=== PATIENT | male | born 1955 | race Two or more races ===

== ENCOUNTER → 2021-10-16 | Day surgery (SDC) | payer BC, MEDICARE ==
[~2021-10-16] VITALS: Ht 182.9 cm; Wt 93.0 kg
[~2021-10-16] MED LIST: AML5T PO; CIPROFLOXACIN 400MG/200ML 200 ML IV ONE; GLIP10TA9 PO; HYDR-4072 PO; INSU100I33 SC; IOHEXOL 300 MG/ML 100ML BOTTLE IJ ONE; LEVO25TA49 PO; METF-370 PO; MIDAZOLAM HCL 2MG/2ML 2ml VIAL (1mg/ml) ONE; ONDANSETRON HCL 4 MG/2 ML VIAL IV PRN; ONDANSETRON HCL 4 MG/2 ML VIAL ONE; PIOG45TA62 PO; PROPOFOL 10 MG/ML 20 ML IV ONE; fentaNYL CITRATE 5 ML ONE; hydrALAZINE HCL 20 MG/ML VL IV ONE; hydrALAZINE HCL 20 MG/ML VL ONE
[2021-10-16] MEDS: HYDROmorphone HCL 2 MG/ML VL IV PRN ×4 (12:26→12:56)
[2021-10-16 14:15] VITALS: BP 149/70
== END | disposition home or self-care (01) ==
LOC: SUR 08:45 → EDSEX 11:15
PROVIDERS: ATTEND Urology
DX: N20.0 Calculus of kidney (principal); I10 Essential (primary) hypertension; E11.9 Type 2 diabetes mellitus without complications; E03.9 Hypothyroidism, unspecified; F17.200 Nicotine dependence, unspecified, uncomplicated; Z90.49 Acquired absence of other specified parts of digestive tract; Z90.89 Acquired absence of other organs; Z98.890 Other specified postprocedural states; Z79.899 Other long term (current) drug therapy; Z20.822 Contact with and (suspected) exposure to COVID-19
CPT/HCPCS: 50590; 52332; 82962; C2617; J0360; J0744; J1170; J2250; J2405; J2704; J3010; U0003